=== PATIENT | female | born 1990 | race American Indian/Alaskan Native ===

== ENCOUNTER 2018-03-16 22:11 | Emergency (ER) | payer MEDICAID ==
[2018-03-16 22:35] VITALS: BP 119/82; PULSE 90; RESP 20; TEMP 98.6; O2SAT 100
[2018-03-16 23:40] LABS: SQUAMOUS EPITHIAL 1 /hpf (0-5); URINE BACTERIA OCC (<OCC); URINE BILIRUBIN NEGATIVE (NEGATIVE); URINE BLOOD NEGATIVE (NEGATIVE); URINE CLARITY Clear (Clear); URINE COLOR Yellow (YELLOW); URINE GLUCOSE (UA) NORMAL (Normal); URINE LEUKOCYTE ESTERASE NEG Leu/uL (Negative); URINE PROTEIN NEGATIVE (NEGATIVE); URINE UROBILINOGEN NORMAL mg/dL (0.2-1.0)
[2018-03-16 23:41] LABS: HCG,QUALITATIVE URINE POSITIVE (NEGATIVE)
[2018-03-17 00:26] LABS: BASO % 0.6 % (0.0-2.0); EOS # 0.2 K/uL (0.0-0.7); HEMOGLOBIN 12.5 g/dL (11.0-16.0); LYMPH # 1.5 K/uL (1.0-4.3); LYMPH % 20.1 % (20.0-40.0); MEAN CELL VOLUME 89.5 fL (81.0-99.0); MEAN CORPUSCULAR HEMOGLOBIN 30.3 pg (27.0-31.0); MEAN CORPUSCULAR HGB CONC 33.8 g/dL (33.0-37.0); MONO # 0.7 K/uL (0.0-0.8); MONO % 8.6 % (0.0-10.0); NEUT # 5.2 K/uL (1.8-7.0); NEUT % 67.7 % (50.0-75.0); RBC 4.12 Mil/uL (3.80-5.20); WHITE BLOOD COUNT 7.6 K/uL (4.8-10.8)
[2018-03-17 00:42] LABS: ALB/GLOB RATIO 1.2 (1.0-2.1); ALT/SGPT 25 U/L (9-52); AST/SGOT 24 U/L (14-36); BLOOD UREA NITROGEN 11 mg/dL (7-17); CALCIUM 9.4 mg/dl (8.6-10.4); GFR AFRICAN-AMERICAN > 60; GFR NON-AFRICAN AMERICAN > 60
--- NOTE | 2018-03-17 01:22 | US ---
EXAM: US Transabd First Trimester First Gest EXAM DATE/TIME: 03/17/2018 12:11 AM CLINICAL HISTORY: 27 years old, female; Pain; complicated by abdominal or pelvic pain; Lower; First trimester; Gestational age or lmp: 01/20/2018; ; Additional info: Abdominal pain, TECHNIQUE: Real-time ultrasound of the transabd first trimester first gest with image documentation. COMPARISON: No relevant prior studies available. FINDINGS: The uterus measures 11 x 6 x 6 cm. The cervix measures 3.5 cm. There is an intrauterine gestational sac containing a yolk sac and pole. Measurements correspond to a gestational age of 6 weeks 3 days. A heart rate of 73 beats per minute was obtained. The maternal ovaries are normal. Color flow and doppler vascular waveforms were demonstrated to both ovaries. IMPRESSION: Single live IUP with heart rate of 73 beats per minute.
--- NOTE | 2018-03-17 03:38 | C.PDOC ---
History Of Present Illness 27 year old female presents to the ER with a complaint of not feeling well, suprapubic pain, and notes she missed her period, LMP was in December. Denies chest pain, SOB, nausea, or vomiting. Time Seen by Provider: 03/16/18 23:00 Chief Complaint (Nursing): Abdominal Pain History Per: Patient History/Exam Limitations: no limitations Onset/Duration Of Symptoms: Days Current Symptoms Are (Timing): Still Present Location Of Pain/Discomfort: Suprapubic Radiation Of Pain To:: None Quality Of Discomfort: Unable To Describe Associated Symptoms: denies: Fever, Chills, Nausea, Vomiting, Urinary Symptoms Exacerbating Factors: None Alleviating Factors: None Recent travel outside of the [place]: No Abnormal Vaginal Bleeding: No Past Medical History Reviewed: Historical Data, Nursing Documentation, Vital Signs Vital Signs: Last Vital Signs Temp 98.6 F 03/16/18 22:31 Pulse 90 03/16/18 22:31 Resp 20 03/16/18 22:31 BP 119/82 03/16/18 22:31 Pulse Ox 100 03/17/18 03:55 - Medical History PMH: Asthma Family History: States: Unknown Family Hx - Social History Hx Alcohol Use: Yes Hx Substance Use: No Review Of Systems Constitutional: Negative for: Fever, Chills Cardiovascular: Negative for: Chest Pain, Palpitations Respiratory: Negative for: Cough, Shortness of Breath Gastrointestinal: Positive for: Abdominal Pain. Negative for: Nausea, Vomiting Physical Exam - Physical Exam Appears: Non-toxic Skin: Normal Color, Warm, Dry Head: Atraumatic, Normacephalic Eye(s): bilateral: Normal Inspection Oral Mucosa: Moist Chest: Symmetrical, No Tenderness Cardiovascular: Rhythm Regular Respiratory: Normal Breath Sounds, No Rales, No Rhonchi, No Wheezing Gastrointestinal/Abdominal: Soft, No Tenderness, No Distention Pelvic: Other (Patient refused) Neurological/Psych: Oriented x3, Normal Speech ED Course And Treatment - Laboratory Results Result Diagrams: 03/17/18 00:22 03/17/18 00:22 O2 Sat by Pulse Oximetry: 100 (Room air) Pulse Ox Interpretation: Normal - CT Scan/US Transabdominal US Other Rad Studies (CT/US): Read By Radiologist, Radiology Report Reviewed CT/US Interpretation: EXAM: US Transabd First Trimester First Gest. EXAM DATE/TIME: 03/17/2018 12:11 AM. CLINICAL HISTORY: 27 years old, female; Pain; complicated by abdominal or pelvic pain; Lower; First. trimester; Gestational age or lmp: 01/20/2018; ; Additional info: Abdominal pain, . TECHNIQUE: Real-time ultrasound of the transabd first trimester first gest with image documentation. COMPARISON: No relevant prior studies available. FINDINGS: The uterus measures 11 x 6 x 6 cm. The cervix measures 3.5 cm. There is an intrauterine gestational sac containing a yolk sac and pole. Measurements correspond to a gestational age of 6 weeks 3 days. A heart rate of 73 beats per minute was obtained. The maternal ovaries are normal. Color flow and doppler vascular waveforms were demonstrated to both ovaries. IMPRESSION: Single live IUP with heart rate of 73 beats per minute. Progress Note: Urinalysis ordered, results showed a positive , blood work and US ordered. Patient eloped prior to US results. Disposition - Disposition Disposition: ELOPEMENT - ER ONLY Disposition Time: 03:40 Condition: UNKNOWN Forms: [facility] (Slovak) - Clinical Impression Clinical Impression: Abdominal pain, - PA / CUSTOMER ACCOUNT MANAGER / Resident Statement MD/DO has reviewed & agrees with the documentation as recorded. - Scribe Statement The provider has reviewed the documentation as recorded by the Scribe Sherman Noriega All medical record entries made by the Kevonibe were at my direction and personally dictated by me. I have reviewed the chart and agree that the record accurately reflects my personal performance of the history, physical exam, medical decision making, and the department course for this patient. I have also personally directed, reviewed, and agree with the discharge instructions and disposition.
== END 2018-03-17 03:40 | disposition left against medical advice (07) ==
LOC: C.ER 22:11
DX: O26.891 Other specified pregnancy related conditions, first trimester (principal); R10.2 Pelvic and perineal pain; Z3A.01 Less than 8 weeks gestation of pregnancy